=== PATIENT | female | born 2000 | race Caucasian/White ===

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

== ENCOUNTER 2022-11-17 03:50 | Emergency (ER) | payer MEDICAID, SELFPAY ==
[2022-11-17 04:04] VITALS: BP 124/62; PULSE 100; RESP 16; TEMP 36.7; O2SAT 99; BMI 17.9
[2022-11-17 04:20] LABS: IDNOW Serial# 08D9AD1C; Strep A Nucleic Acid Negative (Negative)
[2022-11-17] MEDS: Lidocaine HCl Viscous 2 % 15 ML SOLUTION MUCOUS MEM (04:31)
--- NOTE | 2022-11-17 04:36 | ED.GENADULT ---
HPI - General Adult General Chief complaint: General Medical Stated complaint: throat pain Time Seen by Provider: 11/17/22 04:08 History of Present Illness HPI narrative: PATIENT IS A 22-YEAR-OLD FEMALE PRESENTS TODAY WITH HAVING sore throat has been ongoing for 3 days. Worse with swallowing. Patient was seen at [facility] was started on clindamycin. Patient has an allergy to penicillin. Has a history of peritonsillar abscess in the past was drained in the past at [place] and also at [facility]. Patient complained the pain is getting worse she is unable to swallow well. Having extreme pain when she swallows. She is also approximately 8 weeks . Patient from home. No fever no chills. Related Data Previous Rx's Medication Instructions Recorded ibuprofen 400 mg tablet 400 mg PO Q6H PRN fever or pain 09/02/20 #20 tabs Allergies Allergy/AdvReac Type Severity Reaction Status Date / Time Penicillins [PCN] Allergy Unknown RASH Verified 09/02/20 13:05 Review of Systems Review of Systems: No chest pain or diaphoresis No abdominal pain No vaginal discharge No bleeding Yes all other systems are reviewed and are negative [facility] Past Medical History Attestation statement: The following information was validated with the patient. Medical History Asthma Social History Social History Advance Directives: No Advance Directives Information Provided: Yes Physical Exam ED Vital Signs: Vital Signs - 24 hr 11/17/22 04:04 11/17/22 06:15 Temperature 98.1 F 97.4 F Pulse Rate 100 67 Respiratory Rate 16 Blood Pressure 124/62 101/52 L Pulse Oximetry 99 100 Oxygen Delivery Method Room Air Room Air BMI result Body Mass Index 17.9 Appearance: Alert. Oriented X3. No acute distress. Eyes: Pupils equal, round and reactive to light. ENT: Right tonsils enlarged, touching the uvula. Floor of the mouth is soft. There is no dental issues. Neck: Normal inspection. Neck supple. No lymph nodes noted. No crepitus. Trachea is midline CVS: Normal heart rate and rhythm. Pulses normal. Normal S1 and S2 Respiratory: No respiratory distress. Breath sounds normal. No Wheezing. No rales Abdomen: Soft and nontender. No rigidity. No distention. good BS x4 Skin: Skin warm and dry. Normal skin color. Normal skin turgor. Extremities: No lower extremity edema. Neurovascular intact to all extremities. No Lacerations. No Rash Neuro: Oriented X 3. No motor deficit. No sensory deficit. Moving all extermities. No slurred speech Medications Administered Discontinued Medications Generic Name Dose Route Start Last Admin Trade Name Tjq PRN Reason Stop Dose Admin Dexamethasone Sodium Phosphate 10 mg 11/17/22 04:33 11/17/22 04:43 Dexamethasone Sod Phosphate 10 Mg/Ml Vial IVPUSH 11/17/22 04:34 10 mg ONCE ONE Administration Clindamycin Phosphate 600 mg in 50 mls @ 100 mls/hr 11/17/22 04:33 11/17/22 06:03 Cleocin IV 11/17/22 05:02 Infused ONCE ONE Infusion Lidocaine HCl 15 ml 11/17/22 04:25 11/17/22 04:31 Lidocaine Hcl Viscous 2 % 15 Ml Solution MUCOUS MEM 11/17/22 04:26 15 ml ONCE ONE Administration Medical Decision Making Medical Decision Making [facility] Narrative: Patient has a peritonsillar abscess on exam has a history of the same. Risk and benefit of a needle aspiration explained to patient. Viscous lidocaine used for anesthesia. With suction in place a 10 cc syringe with a 18 gauge needle was used. Over 4 cc of purulent material was drained. Patient was started on steroid. Started on IV clindamycin. Because patient is she did not receive any NSAIDs. Explained to patient the need to use Tylenol only for the pain. Patient denies any abdominal pain. Has an OBGYN appointment later today. She was monitored in the emergency department for the next hour. Symptomatic Sue feels much relieved. Tolerating p.o. tolerating food in the emergency department. She will be discharged home. Follow up with ENT on an outpatient basis. In stable condition. Differential Diagnosis Differential Diagnoses: The differential diagnosis associated with the presentation includes Strep pharyngitis, peritonsillar abscess Lab Data [facility] Lab Attestation statement: I reviewed the patient's lab results. 11/17/22 04:41 11/17/22 04:41 Labs: Lab Results 11/17/22 11/17/22 11/17/22 Range/Units 04:09 04:41 04:41 WBC 22.9 H (4.8-10.8) X10*3/uL RBC 4.20 (4.20-5.50) X10*6/uL Hgb 12.7 (12.0-16.0) g/dl Hct 36.7 L (37.0-47.0) % MCV 87.4 (80.0-98.0) fL MCH 30.2 (27.0-33.0) pg MCHC 34.6 (31.0-35.0) g/dl RDW 12.0 (11.0-16.0) % Plt Count 281 (160-400) X10*3/uL MPV 8.6 L (9.4-12.3) fL Immature Gran % (Auto) 0.4 (0.0-0.4) % Neut % (Auto) 81.1 H (45-73) % Lymph % (Auto) 8.6 L (20-40) % [place] % (Auto) 9.1 (2-11) % Eos % (Auto) 0.4 (0-4) % Baso % (Auto) 0.4 (0-2) % Lymph # (Auto) 2.0 (1.2-4.9) X10*3/uL [place] # (Auto) 2.1 H (0.1-1.2) X10*3/uL Eos # (Auto) 0.1 (0.0-0.4) X10*3/uL Baso # (Auto) 0.1 (0.0-0.2) X10*3/uL Abs Immat Gran (auto) 0.10 H (0.00-0.03) X10*3/uL Absolute Neuts (auto) 18.5 H (2.0-8.3) x10*3/uL Absolute Nucleated RBC 0.000 (0.0-0.012) X10*3/uL Nucleated RBC % (auto) 0.0 (0.0-0.2) /100WBC Smear Tech's Comments VERIFIED Sodium 137 (135-145) mmol/L Potassium 3.6 (3.3-5.1) mmol/L Chloride 105 (96-108) mmol/L Carbon Dioxide 23 (22-29) mmol/L Anion Gap 13 (12-20) BUN 5 L (9-16) mg/dL Creatinine 0.62 (0.5-1.4) mg/dL Estim Creat Clear Calc 129.5 Estimated GFR > 60 Random Glucose 90 (60-115) mg/dL Calcium 9.4 (8.4-10.2) mg/dL Beta HCG, Quant mIU/mL S. pyogenes GrpA EH Negative (Negative) 11/17/22 Range/Units 04:41 WBC (4.8-10.8) X10*3/uL RBC (4.20-5.50) X10*6/uL Hgb (12.0-16.0) g/dl Hct (37.0-47.0) % MCV (80.0-98.0) fL MCH (27.0-33.0) pg MCHC (31.0-35.0) g/dl RDW (11.0-16.0) % Plt Count (160-400) X10*3/uL MPV (9.4-12.3) fL Immature Gran % (Auto) (0.0-0.4) % Neut % (Auto) (45-73) % Lymph % (Auto) (20-40) % [place] % (Auto) (2-11) % Eos % (Auto) (0-4) % Baso % (Auto) (0-2) % Lymph # (Auto) (1.2-4.9) X10*3/uL [place] # (Auto) (0.1-1.2) X10*3/uL Eos # (Auto) (0.0-0.4) X10*3/uL Baso # (Auto) (0.0-0.2) X10*3/uL Abs Immat Gran (auto) (0.00-0.03) X10*3/uL Absolute Neuts (auto) (2.0-8.3) x10*3/uL Absolute Nucleated RBC (0.0-0.012) X10*3/uL Nucleated RBC % (auto) (0.0-0.2) /100WBC Smear Tech's Comments Sodium (135-145) mmol/L Potassium (3.3-5.1) mmol/L Chloride (96-108) mmol/L Carbon Dioxide (22-29) mmol/L Anion Gap (12-20) BUN (9-16) mg/dL Creatinine (0.5-1.4) mg/dL Estim Creat Clear Calc Estimated GFR Random Glucose (60-115) mg/dL Calcium (8.4-10.2) mg/dL Beta HCG, Quant 81856 mIU/mL S. pyogenes GrpA EH (Negative) Discharge Plan Discharge Clinical Impression: Abscess, peritonsillar Patient Disposition: Home, Self-Care Instructions: Peritonsillar Abscess (DC) Additional Instructions: Tylenol for pain. You may continue to take your clindamycin. Prescriptions: No Action ibuprofen 400 mg tablet 400 mg PO Q6H PRN (Reason: fever or pain) Qty: 20 0RF Referrals: Raymon Garcia [Physician] - 11/19/22
[2022-11-17] MEDS: dexAMETHasone sod phosphate 10 MG/ML VIAL IVPUSH (04:43)
[2022-11-17] MEDS: Clindamycin Phosphate/D5W 600 MG/50 ML PIGGYBACK 100 MG IV (04:44)
[2022-11-17 04:45] LABS: Basophils Absolute Auto 0.1 X10*3/uL (0.0-0.2); Basophils Percent Auto 0.4 % (0-2); Eosinophils Absolute Auto 0.1 X10*3/uL (0.0-0.4); Eosinophils Percent Auto 0.4 % (0-4); Hematocrit 36.7 % (37.0-47.0); Hemoglobin 12.7 g/dl (12.0-16.0); Imm Gran Pct Auto 0.4 % (0.0-0.4); Lymphocytes Percent Auto 8.6 % (20-40); Mean Corpuscular HGB Conc 34.6 g/dl (31.0-35.0); Mean Corpuscular Hemoglobin 30.2 pg (27.0-33.0); Mean Corpuscular Volume 87.4 fL (80.0-98.0); Mean Platelet Volume 8.6 fL (9.4-12.3); Monocytes Absolute Auto 2.1 X10*3/uL (0.1-1.2); Monocytes Percent Auto 9.1 % (2-11); Neutrophils Absolute Auto 18.5 x10*3/uL (2.0-8.3); Neutrophils Percent Auto 81.1 % (45-73); Platelet Count 281 X10*3/uL (160-400); SCAN SMEAR FLAG 1; White Blood Count 22.9 X10*3/uL (4.8-10.8)
[2022-11-17 04:46] LABS: MANUAL DIFF FLAG SCAN
--- NOTE | 2022-11-17 05:00 | PC.NURSE ---
late entry- this rn at bedside to assist with draining cyst. pt medicated according to hernando. pt portuguese speaking only
[2022-11-17 05:02] LABS: SLIDE REVIEW VERIFIED
[2022-11-17 05:08] LABS: Anion Gap 13 (12-20); Blood Urea Nitrogen 5 mg/dL (9-16); Calcium 9.4 mg/dL (8.4-10.2); Carbon Dioxide 23 mmol/L (22-29); Chloride 105 mmol/L (96-108); Creatinine Clr Calc Pharmacy 129.5; Estimated Glomerular Filt Rate > 60; Glucose Random 90 mg/dL (60-115); Potassium 3.6 mmol/L (3.3-5.1); Sodium 137 mmol/L (135-145)
[2022-11-17 06:15] VITALS: BP 101/52; PULSE 67; TEMP 36.3; O2SAT 100
[2022-11-17] MEDS: Acetaminophen 325 MG TABLET 650 MG PO (06:51)
--- NOTE | 2022-11-17 07:19 | PC.NURSE ---
iv removed at time of discharge. pt ambulatory. pt medicated according to aug. pt discharged to waiting room to find ride home. pt provided with discharge plan. pt verbalized understanding of discharge plan
== END 2022-11-17 07:21 | disposition home or self-care (01) ==
PROVIDERS: Emergency Provider Emergency Medicine Emergency Medical Services
DX: O26.891 Other specified pregnancy related conditions, first trimester (principal); J36 Peritonsillar abscess
CPT/HCPCS: 36415; 80048; 84702; 85025; 87070; 87077; 87185; 87205; 87651; 96365; 96375; 99284; J1100

== ENCOUNTER 2024-03-28 14:08 | Outpatient (REF) | payer MEDICAID, SELFPAY ==
[2024-03-29 04:27] LABS: HIV AB/AG Nonreactive (Nonreactive); HIV Num 1 0.05 S/CO (0.00-0.99); ~HepC Num1 0.09 S/CO (0.00-0.79); ~Hepatitis C Antibody Nonreactive (Nonreactive)
[2024-03-29 08:49] LABS: Bacterial Vaginosis PCR NEGATIVE (Negative); Candida Group PCR NOT DETECTED (Not Detect); Candida glab krusei PCR NOT DETECTED (Not Detect); Trichomonas vaginalis PCR NOT DETECTED (Not Detect)
[2024-03-29 09:11] LABS: CT PCR NOT DETECTED (Not Detect.); NG PCR NOT DETECTED (Not Detect.)
[2024-03-31 02:23] LABS: RPR Rapid Plasma Reagin NON-REACTIVE (NON-REACTIVE)
== END 2024-03-28 14:09 | disposition home or self-care (01) ==
LOC: HO.HHCL 14:08
PROVIDERS: Visit Provider General Practice
DX: Z12.4 Encounter for screening for malignant neoplasm of cervix (principal)
CPT/HCPCS: 0352U; 36415; 86592; 86803; 87389; 87491; 87591; 88175

== ENCOUNTER 2024-04-08 15:34 | Outpatient (REF) | payer MEDICAID, SELFPAY ==
[2024-04-08 16:36] LABS: MANUAL DIFF FLAG NO
[2024-04-08 16:50] LABS: Basophils Absolute Auto 0.1 X10*3/uL (0.0-0.2); Basophils Percent Auto 1.1 % (0-2); Eosinophils Absolute Auto 0.3 X10*3/uL (0.0-0.4); Eosinophils Percent Auto 2.5 % (0-4); Hematocrit 40.4 % (37.0-47.0); Hemoglobin 13.5 g/dl (12.0-16.0); Imm Gran Abs Auto 0.04 X10*3/uL (0.00-0.03); Imm Gran Pct Auto 0.4 % (0.0-0.4); Lymphocytes Absolute Auto 2.1 X10*3/uL (1.2-4.9); Lymphocytes Percent Auto 19.5 % (20-40); Mean Corpuscular HGB Conc 33.4 g/dl (31.0-35.0); Mean Corpuscular Hemoglobin 28.6 pg (27.0-33.0); Mean Corpuscular Volume 85.6 fL (80.0-98.0); Mean Platelet Volume 9.5 fL (9.4-12.3); Monocytes Absolute Auto 0.9 X10*3/uL (0.1-1.2); Monocytes Percent Auto 8.3 % (2-11); Neutrophils Absolute Auto 7.3 x10*3/uL (2.0-8.3); Neutrophils Percent Auto 68.2 % (45-73); Platelet Count 358 X10*3/uL (160-400); Red Blood Count 4.72 X10*6/uL (4.20-5.50); Red Cell Distribution Width 12.4 % (11.0-16.0); White Blood Count 10.7 X10*3/uL (4.8-10.8)
[2024-04-08 16:54] LABS: Estimated Average Glucose 97 mg/dL; Hemoglobin A1C 110.2415 umol/L; Total Hemoglobin (HGBA1C) 3552.5155 umol/L
[2024-04-09 15:48] LABS: Bacterial Vaginosis PCR NEGATIVE (Negative); Candida Group PCR NOT DETECTED (Not Detect); Candida glab krusei PCR NOT DETECTED (Not Detect); Trichomonas vaginalis PCR NOT DETECTED (Not Detect)
== END 2024-04-08 15:35 | disposition home or self-care (01) ==
LOC: HO.HHCL 15:34
PROVIDERS: Visit Provider General Practice
DX: R42 Dizziness and giddiness (principal); N89.8 Other specified noninflammatory disorders of vagina
CPT/HCPCS: 0352U; 36415; 83036; 85025

== ENCOUNTER 2025-01-04 10:54 | Outpatient (REF) | payer MEDICAID, SELFPAY ==
--- OUTSIDE RECORDS SUMMARY | 2025-01-04 11:58 | XMS_ITS | Encounter Summary ---
Author Organization [employer] Address [address] [facility] [address] [address] [place] [address] Care Team Providers Care Produce Associate Name Role Phone Ivania Lou MD Primary Care Provider Reason for Visit * Reason Onset Date Comments Results 09/01/2022 Encounter Details Date Type Department Care Team ([facility] st Contact Info) Description 09/01/2022 Telephone [facility] MEDICINE [address] [place], [place] [phone] Ivania Lou MD [address] [place], [place] [phone] Results Social History Tobacco Use Types Packs/Day Years Used Date Smoking Tobacco: Never Assessed Comments Unknown Sex and Gender Information Value Date Recorded Sex Assigned at Female 04/07/2022 10:32 AM EDT Legal Sex Female 10:32 AM EDT Gender Identity Female 04/07/2022 10:32 AM EDT Sexual Orientation Straight 04/07/2022 10 :32 AM EDT COVID-19 Exposure Response Date Recorded In the last 10 days, have yo u been in contact with someone who was confirmed or suspected to have Coronavirus/COVID-19? No / Unsure 08/29/2022 12:36 PM EDT documented as of this encounter Miscellaneous Notes * Telephone Encounter - Kristen Ordaz RN - 09/01/2022 2:46 PM EDT 2nd call placed to pt via [employer] #[id number]. Advised of message from Dr. Vasques re: vaginal swab results. Pt reports a strange vaginal odor, pain and burning sensation with urination. Denies vaginal discharge. Advised of recommendation for treatment with metronidazole. Pt reports that she is going to ED for evaluation of severe left lower abd pain. Reports pain kept her from sleeping last night. * Telephone Encounter - Toro Jeison - 09/01/2022 2:13 PM EDT Tc from pt requesting status on message below * Telephone Encounter - Karey Gooden - 09/01/2022 10:46 AM EDT Tc from pt requesting some results that were done not to long ago. Please contact pt at [phone] Swedish Speaker documented in this encounter Plan of Treatment Upcoming Encounters Date Type Department Care Team (Late st Contact Info) Description 01/25/2025 4:00 PM EDT Office Visit [address] [address] Ivania Lou MD [address] [place] [address] 03/22/2025 2:45 PM EDT Procedure Visit [address] [address] Lashell Oconnell CNM [address] [place] [address] documented as of this encounter Visit Diagnoses Not on filedocumented in this encounter Care Teams Produce Associate Relationship Specialty Start Date End Date Ivania Lou MD [address] [place] [address] PCP - General Family Medicine 01/14/21 documented as of this encounter
[2025-01-04 13:34] LABS: Hematocrit 41.2 % (37.0-47.0); Hemoglobin 13.4 g/dl (12.0-16.0); Mean Corpuscular HGB Conc 32.5 g/dl (31.0-35.0); Mean Corpuscular Hemoglobin 28.9 pg (27.0-33.0); Mean Corpuscular Volume 89.0 fL (80.0-98.0); NRBC Abs Auto 0.000 X10*3/uL (0.0-0.012); NRBC Pct Auto 0.0 /100WBC (0.0-0.2); Platelet Count 349 X10*3/uL (160-400); Red Blood Count 4.63 X10*6/uL (4.20-5.50); White Blood Count 16.6 X10*3/uL (4.8-10.8)
[2025-01-04 13:49] LABS: Hemoglobin A1C 112.4567 umol/L; Total Hemoglobin (HGBA1C) 3548.9780 umol/L
[2025-01-04 14:30] LABS: Ferritin 45 ng/mL (10-122); Free T4 (Free Thyroxine) 1.08 ng/dL (0.71-1.85)
[2025-01-04 14:39] LABS: Alanine Aminotransferase 18 U/L (0-31); Albumin Level 4.7 g/dL (3.5-5.0); Alkaline Phosphatase 82 U/L (39-117); Anion Gap 11 (12-20); Aspartate Amino Transferase 19 U/L (5-31); Blood Urea Nitrogen 12 mg/dL (9-16); Calcium 8.8 mg/dL (8.4-10.2); Carbon Dioxide 26 mmol/L (22-29); Chloride 106 mmol/L (96-108); Cholesterol 143 mg/dL (<200); Estimated Glomerular Filt Rate > 60; HDL Cholesterol 62 mg/dL (>40); Iron 54 mcg/dL (30-160); Percent Iron Saturation 19 % (15-50); Potassium 4.0 mmol/L (3.3-5.1); Sodium 139 mmol/L (135-145); Thyroid Stimulating Hormone 0.79 uIU/mL (0.32-4.0); Total Iron Binding Capacity 283 mcg/dL (228-428); Total Protein 7.2 g/dL (6.5-8.0); Triglycerides 32 mg/dL (<150); Unsaturated Iron Binding 229 ug/dL
[2025-01-04 14:46] LABS: Folate 9.1 ng/mL (> or = 4.0); Vitamin B12 545 pg/mL (200-900)
== END 2025-01-04 10:55 | disposition home or self-care (01) ==
LOC: HO.HHCL 10:54
PROVIDERS: General Practice; PCP Family Medicine; Visit Provider Family Medicine
DX: R42 Dizziness and giddiness (principal); D64.9 Anemia, unspecified; R51.9 Headache, unspecified
CPT/HCPCS: 36415; 80053; 80061; 82248; 82306; 82607; 82728; 82746; 83036; 83540; 84439; 84443; 85027

== ENCOUNTER 2025-02-07 11:01 | Outpatient (REF) | payer MEDICAID, SELFPAY ==
--- OUTSIDE RECORDS SUMMARY | 2025-02-07 12:37 | XMS_ITS | Encounter Summary ---
Author Organization [employer] Address [address] [place] [address] Care Team Providers Care Electrical Technician Name Role Phone Ivania Lou MD Primary Care Provider [phone] Reason for Visit * Reason Comments Med Refill Encounter Details Date Type Department Care Team ([facility] st Contact Info) Description 02/06/2025 Refill [facility] MEDICINE [address] [place], [place] [phone] Ivania Lou MD [address] [place], [place] [phone] Social History Tobacco Use Types Packs/Day Years Used Date Smoking Tobacco: Former Smokeless Tobacco: Never Alcohol Use Standard Drinks/Week Comments Never 0 (1 standard drink = 0.6 oz pur e alcohol) Depression Answer Date Recorded Patient Health Questionnaire-9 Score 0 2024 Patient Health Questionnaire-9 Score 0 2024 Last PHQ-9: Questionnaire Data Not on file 1 Housing Stability Answer Date Recorded What is your housing situation today? I have jenny cross 12/15/[address] you li ve. Do you have problems with any of the following? None of the above 12/15/2023 Food Insecurity Answer Date Recorded Within the past 12 months, y ou worried that your food would run out before you got money to buy more: Never True 2024 Within the past 12 months,th e food you bought just didn't last and you didn't have enough money to get more: Never True Transportation Answer Date Recorded In the past 12 months, has l ack of transportation kept you from medical appts, meetings, work or from getting things needed for daily living? No 2024 Utilities Answer Date Recorded In the past 12 months, has t he electric, gas, oil or water company threatened to shut off services in your home? No 12/15/2023 Depression Answer Date Recorded Patient Health Questionnaire-2 Score 0 2024 Internet Access Answer Date Recorded Internet Access Q1 Yes 02/08/2024 Internet Access Q2 Not on file 02/08/2024 Comments No Sex and Gender Information Value Date Recorded Sex Assigned at Female 04/07/2022 10:32 AM EDT Legal Sex Female 10:32 AM EDT Gender Identity Female 04/07/2022 10:32 AM EDT Sexual Orientation Straight 04/07/2022 10 :32 AM EDT documented as of this encounter Plan of Treatment Upcoming Encounters Date Type Department Care Team (Late st Contact Info) Description 03/22/2025 2:45 PM EDT Procedure Visit [facility] MEDICINE [address] [place] [address] Lashell Oconnell CNM [address] [place] [address] documented as of this encounter Visit Diagnoses Not on filedocumented in this encounter Additional Health Concerns Assessment Noted Time PHQ-9 Depression Total Score: 0 03/28/20 24 1:24 PM EDT documented as of this encounter Care Teams Electrical Technician Relationship Specialty Start Date End Date Ivania Lou MD [address] [place] [address] PCP - General Family Medicine 01/14/21 documented as of this encounter
--- OUTSIDE RECORDS SUMMARY | 2025-02-07 12:37 | XMS_ITS | Encounter Summary ---
Author Organization [employer] Address [address] [facility] [address] [place] [address] Care Team Providers Care Medical Transcription Editor Name Role Phone Ivania Lou MD Primary Care Provider [phone] Reason for Visit * Reason Onset Date Comments Nurse Triage 02/03/2025 Encounter Details Date Type Department Care Team (Late st Contact Info) Description 02/03/2025 Telephone [facility] MEDICINE [address] [place] [address] Ivania Lou MD [address] [place], [place] [phone] Nurse Triage Social History Tobacco Use Types Packs/Day Years [...] AM EDT documented as of this encounter Miscellaneous Notes * Telephone Encounter - Erinn SilvaHOMA lyle - 02/03/2025 2:37 PM EDT Triage call returned with BLS #[id number] [place]AP[place]. Patient reports that she needs medication for vaginal yeast infection. Notes reviewed and patient seen in [facility] ED on 01/23/25 and prescribed Cipro 500mg by mouth two times daily. Patient has 5 left and reports I'm not perfect and have forgotten to take some Patient advised to complete all ABT as ordered. Patient then references that she was seen at [facility] after ED visit and given a dose of Fluconazole that she has not yet taken. Patient reports that she has not taken it as hermale partner has similar issue with penis and has no health insurance and is unable to obtain treatment for his issue. Patient asking if her medication would address his issue as well. Patient advised to have partner seek evaluation at ED for his concern and that she should take tablet provided to her. Patient also told partner can meet with training and development specialist to apply for coverage if assistance is needed. Patient then reports she is unable to find tablet of Fluconazole given to her and may Iorder her another one. Disposition reviewed and patient in agreement with plan. Forwarded to PCP and team as FYI to follow up PRN Patient also provided [facility] Thursday hours for her concerns as needed tomorrow. Protocol Used: Vaginal Symptoms (Adult) Protocol-Based Disposition: See in Office or Video Visit within 3 Days Override (Final) Disposition: Discuss with PCP and Callback by Nurse Today Override Reason: Already seen and questions Positive Triage Question: * Patient wants to be seen * All higher-acuity triage questions were negative Care Advice Discussed: * Reasons To Call Back - You become worse * Telephone Encounter - Jose Varma - 02/03/2025 1:59 PM EDT Tc from pt reporting that she has gatito and a uti. Pt states that she went to another walk in clinic 3 days ago. Pt still has the symptoms and is looking for n antibiotic. Contact pt at [phone] documented in this encounter Plan of Treatment Upcoming Encounters Date Type Department Care Team (Late st Contact Info) Description 03/22/2025 2:45 PM EDT Procedure Visit [facility] MEDICINE [address] [place], [place] [phone] Lashell Oconnell CNM [address] [place] [address] documented as of this encounter Visit Diagnoses Not on filedocumented in this encounter Additional Health Concerns Assessment Noted Time PHQ-9 Depression Total Score: 0 03/28/20 24 1:24 PM EDT documented as of this encounter Care Teams Medical Transcription Editor Relationship Specialty Start Date End Date Ivania Lou MD [address] [place] [address] PCP - General Family Medicine 01/14/21 documented as of this encounter
--- OUTSIDE RECORDS SUMMARY | 2025-02-07 12:37 | XMS_ITS | Encounter Summary ---
Author Organization [employer] Address [address] [facility] [address] [place] [address] Care Team Providers Care Body Component Engineer Name Role Phone Ivania Lou MD Primary Care Provider [phone] Reason for Visit * Reason Onset Date Comments Results 09/01/2022 Encounter Details Date Type Department Care Team ([facility] st Contact Info) Description 09/01/2022 Telephone [facility] [address] [place], [place] [phone] Ivania Lou MD [address] [place], [place] [phone] Results Social History Tobacco Use Types Packs/Day [...] EDT 2nd call placed to pt via [employer] #[id number]. Advised of message from Dr. Vasques re: vaginal swab results. Pt reports a strange vaginal odor, pain and burning sensation with urination. Denies vaginal discharge. Advised of recommendation for treatment with metronidazole. Pt reports that she is going to ED for evaluation of severe left lower abd pain. Reports pain kept her from sleeping last night. * Telephone Encounter - Toro Mchugh - 09/01/2022 2:13 PM EDT Tc from pt requesting status on message below * Telephone Encounter - Karey Gooden - 09/01/2022 10:46 AM EDT Tc from pt requesting some results that were done not to long ago. Please contact pt at [phone] Setswana Speaker documented in this encounter Plan of Treatment Upcoming Encounters Date Type Department Care Team (Late st Contact Info) Description 03/22/2025 2:45 PM EDT Procedure Visit [facility] [address] [place] [address] Lashell Oconnell CNM [address] [place] [address] documented as of this encounter Visit Diagnoses Not on filedocumented in this encounter Care Teams Body Component Engineer Relationship Specialty Start Date End Date Ivania Lou MD [address] [place] [address] PCP - General Family Medicine 01/14/21 documented as of this encounter
--- OUTSIDE RECORDS SUMMARY | 2025-02-07 12:37 | XMS_ITS | Encounter Summary ---
Author Organization [employer] Address [address] [facility] [address] [place] [address] Care Team Providers Care Patient Placement Coordinator Name Role Phone Ivania Lou MD Primary Care Provider [phone] Reason for Visit * Reason Onset Date Comments Lab Orders 02/07/2025 Encounter Details Date Type Department Care Team (Late st Contact Info) Description 02/07/2025 Telephone [facility]INE [address] [place] [address] Ivania Lou MD [address] [place], [place] [phone] Lab Orders Social History Tobacco Use Types Packs/Day Years [...] encounter Miscellaneous Notes * Telephone Encounter - Vanessa Tran RN - 02/07/2025 10:44 AM EDT TC returned to pt. Pt. Confirms she was able to picker tender and take diflucan, and partner was able to secure treatment aswell. Pt. Reports + urine hcg at home on 02/04/25 with LMP 12/28-01/01. Negative preg test in hospital on 01/23/25. Pt. Reports she has not been using any form of contraception. Pt. Reports mild cramping, headaches, nausea, mood swings, increase in clear vaginal discharge. No vaginal bleeding or spotting. HCG ordered, pt. Will come to lab today. Requests referral to [facility] if +, this is where she delivered first child. Pt. Also request rx is + as well. Pt. Will access results via [email or web address]. * Telephone Encounter - Nagi Doan - 02/07/2025 8:35 AM EDT Tc from pt stating stating she has come out for home test and would like lab work to further verify. Please contact pt at [phone]. (Greek Speaker) documented in this encounter Plan of Treatment Upcoming Encounters Date Type Department Care Team (Late st Contact Info) Description 03/22/2025 2:45 PM EDT Procedure Visit [facility]INE [address] [place], [place] [phone] Lashell Oconnell CNM [address] [place], [place] [phone] Scheduled Orders Name Type Priority Associated Diagnoses Orde r Schedule hCG, Total, Quantitative Lab Routine test positive Expected: 02/07/2025 (Approximate), Expires: 02/07/2026 documented as of this encounter Visit Diagnoses Diagnosis test positive examination or test, positive result documented in this encounter Additional Health Concerns Assessment Noted Time PHQ-9 Depression Total Score: 0 03/28/20 24 1:24 PM EDT documented as of this encounter Care Teams Patient Placement Coordinator Relationship Specialty Start Date End Date Ivania Lou MD [address] [place] [address] PCP - General Family Medicine 01/14/21 documented as of this encounter
--- OUTSIDE RECORDS SUMMARY | 2025-02-07 12:37 | XMS_ITS | Encounter Summary ---
Author Organization [employer] Address [address] [facility] [address] [place] [address] Care Team Providers Care Touch Up Painter Name Role Phone Ivania Lou MD Primary Care Provider [phone] Reason for Visit * Reason Onset Date Comments Error (VOID this visit) 02/07/2025 Encounter Details Date Type Department Care Team ([facility] st Contact Info) Description 02/07/2025 Telephone [facility] MED[facility]INE [address] [place], [place] [phone] Ivania Lou MD [address] [place], [place] [phone] Error (VOID this visit) Social History Tobacco Use Types Packs/Day Years [...] Description 03/22/2025 2:45 PM EDT Procedure Visit [facility] [address] [place] [address] Lashell Oconnell CNM [address] [place] [address] documented as of this encounter Visit Diagnoses Not on filedocumented in this encounter Additional Health Concerns Assessment Noted Time PHQ-9 Depression Total Score: 0 03/28/20 24 1:24 PM EDT documented as of this encounter Care Teams Touch Up Painter Relationship Specialty Start Date End Date Ivania Lou MD [address] [place] [address] PCP - General Family Medicine 01/14/21 documented as of this encounter
--- OUTSIDE RECORDS SUMMARY | 2025-02-07 12:37 | XMS_ITS | Clinical Summary ---
Author Organization [employer] Address [address] [facility] [address] [place] [address] Care Team Providers Care Locate Technician Name Role Phone Ivania Lou MD Primary Care Provider [phone] Allergies Active Allergy Reactions Criticality Noted Date Comments Penicillin G 03/06/2017 Other reaction(s): Angioedema, hives Shrimp (Diagnostic) 12/21/2023 Medications acetaminophen (Tylenol) 500 MG tablet 2 tablet by oral route every 6 hours prn pain 09/12/19 20 Active acetaminophen (Tylenol) 325 MG tablet Take 650 mg by mouth. 09/18/19 20 Active 27-1 MG tablet TAKE 1 TABLET BY MOUTH EVERY DAY 90 tablet 3 04/02/20 23 Active albuterol 108 (90 Base) MCG/ACT inhalerIndica tions:COVID-1 9 Inhale 2 puffs every 6 (six) hours if needed for wheezing. 18 g 11 06/05/20 23 Active albuterol (2.5 MG/3ML) 0.083% nebulizer solutionIndic ations:COVID- 19 Take 3 mL (2.5 mg) by nebulization every 4 (four) hours if needed for wheezing. 75 mL 3 06/05/20 23 Active Spacer/Aero-H olding Chambers (AeroChamber MV) inhalerIndica tions:COVID-1 9 Use as instructed 1 each 2 06/05/20 23 Active polyethylene glycol, PEG, 3350 (MiraLax) 17 GM/SCOOP powder Take 17 g by mouth. 07/18/19 24 Active Ferrous Fumarate 325 (106 Fe) MG tablet Take 325 mg by mouth. 04/20/20 23 Active simethicone (Mylicon) 80 MG chewable tablet Chew 80 mg. 07/18/19 24 Active MV-Min-Fe Fum-FA-DHA ( 1 PO) Take 3 capsules by mouth. 12/27/19 23 Active ketoconazole (NIZOral) 2 % shampoo Apply topically 2 (two) times a week. 120 mL 3 11/18/19 25 Active SUMAtriptan (Imitrex) 25 MG tablet TAKE 1 TABLET BY MOUTH AT ONSET OF MIGRAINE. MAY REPEAT ONCE AFTER 2 HOURS IF NEEDED DO NOT EXCEED 2 DOSES IN 24 HOURS 9 tablet 1 01/05/20 25 Active norelgestromi n-ethinyl estradiol (Xulane) 150-35 MCG/24HR Apply 1 patch each week for 3 weeks, then have no patch for 1 week. Repeat 3 patch 12 01/10/20 25 Active cholecalcifer ol (Vitamin D-3) 50 MCG (1999 UT) capsule Take 1 capsule (50 mcg) by mouth Once per day. 90 capsule 3 01/14/20 25 Active etonogestrel- ethinyl estradiol (Nuvaring) 0.12-0.015 MG/24HR vaginal ring Insert 1 Ring. into the vagina See administration instructions. 1 every 3 weeks as directed then remove for 1 week. Repeat with new ring every month 1 Ring. 3 01/05/20 25 2024 Discontinued fluconazole (Diflucan) 150 MG tablet Take 1 tablet (150 mg) by mouth 1 (one) time for 1 dose. 1 tablet 02/04/20 25 2024 Active Problems Problem Noted Date Diagnosed Date LGSIL on Pap smear of cervix 04/07/2024 Anxiety 12/21/2023 History of depression 12/21/2023 Social problem 12/21/2023 Non-Sinhala speaking patient 12/21/2023 Maternal varicella, non-immune 12/21/2023 Mixed anxiety and depressive disorder 05/13/2022 Assessment & Plan (12/15/2022 9:20 AM EDT): History of anxiety and depression, passive SI Often related to SES circumstances Encouraged using marriage and family social worker at [facility] to explore housing options She is aware of half-way option Sees therapist weekly Declines medication interventions She can followup with me prn regarding that Encouraged building support system now Streptococcal sore throat 05/13/2022 Asthma 03/06/2017 Seasonal allergic rhinitis 03/06/2017 Resolved Problems Problem Noted Date Diagnosed Date Resolved Date 12/21/2023 01/04/2025 10 weeks gestation of 12/15/2022 01/04/2025 Assessment & Plan (12/15/2022 9:21 AM EDT): Instructed her to call [facility] to come to triage for eval of vaginal spotting at 10 weeks Encounters Date Type Department Care Team Description 02/07/2025 Telephone [facility] [address] [place] [address] Ivania Lou MD Error (VOID this visit) 02/07/2025 Telephone [facility] [address] [place] [phone] Ivania Lou MD Lab Orders 02/06/2025 Refill [facility] [address] [place] [address] [phone] Ivania Lou MD 02/03/2025 Orders Only [facility] [address] [place] [phone] Ivania Lou MD 02/03/2025 Telephone [facility] [address] [place] [address] [phone] Ivania Lou MD Nurse Triage 01/24/2025 Telephone [facility] PEDS [address] [place] [address] Ivania Lou MD Chart Prep 01/13/2025 Refill [facility] [address] [place] [address] Ivania Lou MD 01/09/2025 Orders Only [facility] [address] [place] [address] Lashell Oconnell CNM 01/06/2025 Telephone [facility] [address] [place] [address] [phone] Ivania Lou MD Medication Question 01/04/2025 11:30 AM EDT Office Visit [facility] [address] [place] [phone] Lashell Oconnell CNM Family planning counseling (Primary Dx) 01/04/2025 Travel 01/03/2025 Telephone [facility] [address] [place] [phone] Lashell Oconnell CNM chart prep 01/03/2025 Refill [facility] [address] [place] [phone] Lili Vela DO 01/02/2025 Telephone [facility] [address] [place] [address] [phone] Ivania Lou MD Medication Question 12/15/2024 10:00 AM EDT Office Visit [facility] [address] [place] [address] [phone] Lili Vela DO Acute intractable headache, unspecified headache type (Primary Dx); Anemia, unspecified type 12/15/2024 Travel 11/15/2024 Refill [facility] [address] [place] [address] [phone] Ivania Lou MD from Last 3 Months Immunizations Immunization Administration Dates Next Due DTaP 03/27/2008, 6,01/01/2004,07/03,2002,2002 HPV 9-Valent 05/25/2018,06/02/2017,04/01/2017 Hep A, ped/adol, 2 dose 04/01/2017,01/09/2006 Hep B, Adolescent or Pediatric 2002,2002,2002 HiB, unspecified 01/09/2006,2002, 3 Hib (PRP-T) 2002 IPV 04/13/2006, 3,2002,07/01 Influenza injectable quadriv alent preservative free 05/26/2019,05/25/2018,04/01/2017 Influenza, IIV3, injectable 03/17/2023 MMR 05/15/2006, 6,05/18/2003,04/20 Meningococcal MCV4P ACYW-135 05/26/2019,04/01/20 17 Tdap 05/04/2023,04/01/2017 Varicella 2006,07/21/2003,04/20/2003 Social History Tobacco Use Types Packs/Day Years Used Date Smoking Tobacco: Former Smokeless Tobacco: Never Tobacco Cessation:Counseling Given: Not Answered Alcohol Use Standard Drinks/Week Comments Never 0 [...] Q2 Not on file 02/08/2024 Comments No Intention Date Recorded Ambivalent about becoming (find ing) 01/04/2025 Sex and Gender Information Value Date Recorded Sex Assigned at Female 04/07/2022 10:32 AM EDT Legal Sex Female 10:32 AM EDT Gender Identity Female 04/07/2022 10:32 AM EDT Sexual Orientation Straight 04/07/2022 10 :32 AM EDT Last Filed Vital Signs Vital Sign Reading Time Taken Comments Blood Pressure 120/78 01/04/2025 11:29 AM EDT Pulse 104 01/04/2025 11:29 AM EDT Temperature 36.1 C (97 F) 01/04/2025 11:29 AM EDT Respiratory Rate 12 01/04/2025 11:29 AM EDT Oxygen Saturation 99% 01/04/2025 11:29 AM EDT Inhaled Oxygen Concentration - - Weight 66.4 kg (146 lb 6.4 oz) 01/04/2025 11:29 AM EDT Height 147.3 cm (4' 10 ) 2024 1:22 PM EDT Body Mass Index 30.6 2024 1:22 PM EDT Plan of Treatment Upcoming Encounters Date Type Department Care Team (Late st Contact Info) Description 03/22/2025 2:45 PM EDT Procedure Visit [facility] [address], [place] [phone] Lashell Oconnell, CNM [address], [place] [phone] Health Maintenance Due Date Last Done Comments Meningococcal B Vaccine (1 of 2 - Standard) 2018 Pneumococcal Vaccine: Pediatrics (0 to 5 Years) and At-Risk Patients (6 to 49) Years (1 of 2 - PCV) 2021 COVID-19 Vaccine ( - season) 2025 Influenza Vaccine (#1) 2025 , 05/26/2019, 05/25/2018, Additional history exists Alcohol/Substance Use Screening 2025 2024 Chlamydia and Gonorrhea Screening 2025 2024, 11/06/2022, 08/29/2022, Additional history exists Depression Screening 2025 2024, 03/28/20 Pap Smear 2025 2024 SDOH Screening 2025 2024 Disability Screening 01/04/2026 01/04/2025 Family Planning (PISQ) 01/04/2026 01/04/2025 Tobacco Screening 01/04/2026 01/04/2025 DTaP/Tdap/Td Vaccines (8 - Td or Tdap) 05/04/2033 05/04/2023, 04/01/2017, 03/27/2008, Additional history exists Zoster Vaccines (1 of 2) 2052 RSV Patients and Patients Aged 60 years or older (1 - 1-dose 75+ series) 2077 Hepatitis B Vaccines Completed 2002, 2002, 2002 HIB Vaccines Completed 01/09/2006, 11/2002, 2002, Additional history exists IPV Vaccines Completed 04/13/2006, 11/2002, 2002, Additional history exists Hepatitis A Vaccines Completed 04/01/2017, 01/10/20 06 HPV Vaccines Completed 05/25/2018, 05/09, 04/01/2017 Meningococcal Vaccine Completed 05/26/2019, 017 HIV Screening Completed 2024, 01/11/2021 Hepatitis C Screening Completed 2024, 021 RSV under 20 months Aged Out No longe r eligible based on patient's age to complete this topic Rotavirus Vaccines Aged Out No longer eligible based on patient's age to complete this topic Procedures Procedure Name Priority Date/Time Associated Diagnosis Comments TSH W/REFLEX TO FT4 Routine 01/04/2025 1 1:15 AM EDT COMPREHENSIVE METABOLIC PANEL Routine 01/04/2025 11:15 AM EDT IRON AND TOTAL IRON BINDING CAPACITY Routine 01/04/2025 11:15 AM EDT Acute intractable headache, unspecified headache type Anemia, unspecified type FERRITIN Routine 01/04/2025 11:15 AM EDT Acute intractable headache, unspecified headache type Anemia, unspecified type VITAMIN B12/FOLATE, SERUM PANEL Routine 01/04/2025 11:15 AM EDT Acute intractable headache, unspecified headache type Anemia, unspecified type CBC Routine 01/04/2025 11:15 AM EDT Acute intractable headache, unspecified headache type Anemia, unspecified type HEMOGLOBIN A1C Routine 01/04/2025 11:15 AM EDT Acute intractable headache, unspecified headache type Anemia, unspecified type HEPATIC FUNCTION PANEL Routine 11:15 AM EDT Acute intractable headache, unspecified headache type Anemia, unspecified type VITAMIN D,25-OH,TOTAL,IA Routine 01/04/2025 11:15 AM EDT Acute intractable headache, unspecified headache type Anemia, unspecified type TSH Routine 01/04/2025 11:15 AM EDT Acute intractable headache, unspecified headache type Anemia, unspecified type LIPID PANEL, STANDARD Routine 01/04/2025 11:15 AM EDT Acute intractable headache, unspecified headache type Anemia, unspecified type T4, FREE Routine 01/04/2025 11:15 AM EDT Acute intractable headache, unspecified headache type Anemia, unspecified type POCT INFLUENZA B (ID NOW RAPID MOLECULAR) Routine 12/15/2024 10:15 AM EDT Acute intractable headache, unspecified headache type POCT INFLUENZA A (ID NOW RAPID MOLECULAR) Routine 12/15/2024 10:15 AM EDT Acute intractable headache, unspecified headache type POCT RAPID COVID ANTIGEN Routine 12/15/2024 10:15 AM EDT Acute intractable headache, unspecified headache type HEPATITIS C AB W/REFL TO HCV RNA, QN, PCR Routine 2024 2:10 PM EDT Screening examination for sexually transmitted disease HIV 1/2 ANTIGEN/ANTIBODY, FOURTH GENERATION W/RFL Routine 2024 2:10 PM EDT Screening examination for sexually transmitted disease THINPREP IMAGING SYSTEM PAP Routine 2024 12:00 AM EDT Screening for cervical cancer CHLAMYDIA/N. GONORRHOEAE RNA, TMA, UROGENITAL Routine 2024 12:00 AM EDT Screening for cervical cancer from Last 3 Months or Most Recently Relevant to Health Maintenance Results * (ABNORMAL) Vitamin D, 25-Hydroxy, Total, Immunoassay (01/04/2025 11:15 AM EDT) Vitamin D 25-OH Total 26.2(L) >30 ng/mL [facility] Comment: Health Based Reference Values*< 20 ng/mL Yldiuyvco01-51 ng/mL Insufficient> 30 ng/mL Sufficient*Meagan GALVAN. N Engl J Med. 2007;357:266-280There is no well-established upper level of normal vitamin Dlevels. Some laboratories use 50 ng/mL as an upper limit ofnormal. However, toxicity is patient-dependent and may occurat any level. Careful correlation with the patient'spresentation is necessary and, if there is concern forvitamin D toxicity, treatment should be consideredirrespective of the serum level.Care must be taken in interpreting Vitamin D results fromdifferent laboratories and methodologies. Published datademonstrated that results from patients undergoinghemodialysis may show a negative bias when tested withvarious automated 25-OH vitamin D assays when compared toLC-MS/MS.When testing samples from patients whose predominant form ofVitamin D is Vitamin D2, such as patients receiving VitaminD2 supplementation, results that are subtherapeutic shouldbe confirmed with another method such as LC-MS/MS. Blood Venous blood specimen / Unknown 01/04/2025 11:15 AM EDT 01/04/2025 1:19 PM EDT us Lili Vela DO LAB BLOOD ORDERABLES Final R esult [facility] [address], [place] [phone] * Vitamin B12 (Cobalamin) and Folate Panel, Serum (01/04/2025 11:15 AM EDT) Vitamin B12 545 200 - 900 pg/mL [facility] Comment:NORMAL 200-900 PG/M L INDETERMINATE 160-199 PG/ML DEFICIENT < 160 PG/ML Folate 9.1 > or = 4.0 ng/mL [facility] Comment:Reference Values:> o r = 4.0 ng/mL< 4.0 ng/mL suggests folate deficiency Methotrexate, aminopterin and folinic acid(leucovorin) are chemotherapeutic agents whose molecularstructures are similar to folate; therefore, the Architectfolate assay cannot be used for patients using these drugs. Blood 01/04/2025 11:1 5 AM EDT 01/04/2025 1:19 PM EDT Lili Vela DO LAB BLOOD ORDERABLES Final R esult Performing Organization Address [facility] Co de Phone Number [facility] [address] [place] [phone] * TSH with Reflex to Free T4 (01/04/2025 11:15 AM EDT) TSH reflex Free T4 0.79 0.32 - 4.0 uIU/mL [facility] 01/04/2025 11:1 5 AM EDT 01/04/2025 1:19 PM EDT Ivania Lou MD LAB BLOOD ORDERABLES Final Res ult Performing Organization Address [facility] de Phone Number [facility] [address] [place] [address] [phone] * Iron And Total Iron Binding Capacity (01/04/2025 11:15 AM EDT) Iron 54 30 - 160 mcg/dL [facility] Total Iron Binding Capacity 283 228 - 428 mcg/dL [facility] Percent Iron Saturation 19 15 - 50 % [facility] Unsaturated Iron Binding 229 ug/dL [facility] Blood Venous blood specimen / Unknown 01/04/2025 11:15 AM EDT 01/04/2025 1:19 PM EDT Lili Ruizak DO LAB BLOOD ORDERABLES Final R esult [facility] [address] [place] [phone] * (ABNORMAL) CBC (01/04/2025 11:15 AM EDT) White Blood Count 16.6(H) 4.8 - 10.8 X10*3/uL [facility] Red Blood Count 4.63 4.20 - 5.50 X10*6/uL [facility] Hemoglobin 13.4 12.0 - 16.0 g/dl [facility] Hematocrit 41.2 37.0 - 47.0 % [facility] Mean Corpuscular Volume 89.0 80.0 - 98.0 fL [facility] Mean Corpuscular Hemoglobin 28.9 27.0 - 33.0 pg [facility] Mean Corpuscular HGB Conc 32.5 31.0 - 35.0 g/dl [facility] Red Cell Distribution Width 12.8 11.0 - 16.0 % [facility] Platelet Count 349 160 - 400 X10*3/uL [facility] Mean Platelet Volume 9.8 9.4 - 12.3 fL [facility] NRBC Pct Auto 0.0 0.0 - 0.2 /100WBC [facility] NRBC Abs Auto 0.000 0.0 - 0.012 X10*3/uL [facility] Blood Venous blood specimen / Unknown 01/04/2025 11:15 AM EDT 01/04/2025 1:18 PM EDT Lili Mirian DO LAB BLOOD ORDERABLES Final R esult [facility] [address] [place] [phone] * TSH (01/04/2025 11:15 AM EDT) Thyroid Stimulating Hormone 0.79 0.32 - 4.0 uIU/mL [facility] Comment:TSH 3rd Generation ( [facility] [employer]) Blood Venous blood specimen / Unknown 01/04/2025 11:15 AM EDT 01/04/2025 1:19 PM EDT Lili Salomonjuancaroline DO LAB BLOOD ORDERABLES Final R esult Performing Organization Address City/[facility]/ZIP Co de Phone Number [facility] [address] [place] [phone] * T4, Free (01/04/2025 11:15 AM EDT) Free T4 (Free Thyroxine) 1.08 0.71 - 1.85 ng/dL [facility] Blood Venous blood specimen / Unknown 01/04/2025 11:15 AM EDT 01/04/2025 1:19 PM EDT Lili Mirian DO LAB BLOOD ORDERABLES Final R esult Performing Organization Address [facility] Co de Phone Number [facility] [address] [place] [phone] * Hemoglobin A1c (01/04/2025 11:15 AM EDT) Hemoglobin A1c 5.1 <6.0 % [facility] Comment:Hemoglobin A1C Refer ence Range Adults: 4.8 - 6.0 % Non diabetic: < 6.0 % Goal: < 7.0 %Additional Action Suggested: > 8.0 %Note: Hemoglobin A1c results are invalid for patients with abnormal amounts of HbF. Blood transfusions may impact the HbA1c concentration in the patient sample. Estimated Average Glucose 100 mg/dL [facility] Comment:eAG = Estimated ave rage glucose which is %A1C expressed asaverage glucose, using the formula of the D6W-CmkuqlbJqescly Glucose study (ADAG), Diabetes Care, Vol.31,#8,2007 Blood Venous blood specimen / Unknown 01/04/2025 11:15 AM EDT 01/04/2025 1:19 PM EDT Lili Mirian DO LAB BLOOD ORDERABLES Final R esult Performing Organization Address City/[facility]/ZIP Co de Phone Number [facility] [address] [place] [address] [phone] * Ferritin (01/04/2025 11:15 AM EDT) Ferritin 45 10 - 122 ng/mL [facility] Blood Venous blood specimen / Unknown 01/04/2025 11:15 AM EDT 01/04/2025 1:19 PM EDT Lili Mirian LAB BLOOD ORDERABLES Final R esult Performing Organization Address [facility] Co de Phone Number [facility] [address] [place] [address] [phone] * Hepatic Function Panel (01/04/2025 11:15 AM EDT) Pathologist [facility] Bilirubin, Direct 0.3 0.0 - 0.5 mg/dL [facility] Blood Venous blood specimen / Unknown 01/04/2025 11:15 AM EDT 01/04/2025 1:19 PM EDT Lili Mirian LAB BLOOD ORDERABLES Final R esult Performing Organization Address City/[facility] Co de Phone Number [facility] [address] [place] [phone] * Lipid Panel, Standard (01/04/2025 11:15 AM EDT) Triglycerides 32 <150 mg/dL [facility] Comment:Desirable Triglyceri de: less than 150 mg/dLBorderline High Triglyceride 150-199 mg/dLHigh Triglyceride: 200-499 mg/dLVery High Triglyceride: greater than or equal to 5OO mg/dL Cholesterol 143 <200 mg/dL [facility] Comment:Desirable Cholestero l: less than 200 mg/dLBorderline High Cholesterol: 200-239 mg/dLHigh Cholesterol: greater than 239 mg/dL LDL Cholesterol Calculated 75 <100 mg/dL [facility] Comment:Desirable LDL: less than 100 mg/dLNear Optimal/Above Optimal LDL: 110- 129 mg/dLBorderline High LDL: 130-159 mg/dLHigh LDL: 160-189 mg/dLVery High LDL: greater than or equal to 190 mg/dL HDL Cholesterol 62 >40 mg/dL [facility] Comment:Desirable HDL: great er than 40 mg/dL Note: This HDL assay may give artificially low results in patients with liver disease. Blood Venous blood specimen / Unknown 01/04/2025 11:15 AM EDT 01/04/2025 1:19 PM EDT us Lili Vela DO LAB BLOOD ORDERABLES Final R esult [facility] [address] [place] [phone] * (ABNORMAL) Comprehensive Metabolic Panel (01/04/2025 11:15 AM EDT) Sodium 139 135 - 145 mmol/L [facility] Potassium 4.0 3.3 - 5.1 mmol/L [facility] Chloride 106 96 - 108 mmol/L [facility] Carbon Dioxide 26 22 - 29 mmol/L [facility] Anion Gap 11(L) 12 - 20 [facility] Urea Nitrogen (BUN) 12 9 - 16 mg/dL [facility] Creatinine, Serum 0.57 0.5 - 1.4 mg/dL [facility] Estimated Glomerular Filt Rate >60 [facility] Comment:Chronic Kidney Disea se: Estimated GFR < 60 mL/min/1.55w9Hkrteg Kidney Disease: Estimated GFR < 15 mL/min/1.73m2 Glucose 85 60 - 115 mg/dL [facility] Calcium 8.8 8.4 - 10.2 mg/dL [facility] Bilirubin, Total 0.8 0.0 - 1.0 mg/dL [facility] Aspartate Amino Transferase 19 5 - 31 U/L [facility] Alanine Aminotransferase 18 0 - 31 U/L [facility] Total Protein 7.2 6.5 - 8.0 g/dL [facility] Albumin Level 4.7 3.5 - 5.0 g/dL [facility] Alkaline Phosphatase 82 39 - 117 U/L [facility] 01/04/2025 11:1 5 AM EDT 01/04/2025 1:19 PM EDT us Ivania Lou MD LAB BLOOD ORDERABLES Final Res ult Performing Organization Address [facility]/ZIP Co de Phone Number [facility] [address] [place] [address] [phone] * Influenza B (ID NOW Rapid Molecular) (12/15/2024 10:15 AM EDT) Influenza B Negative Negative, Indeterminate [facility] Swab 12/15/2024 10:1 5 AM EDT us Lili Vela DO POINT OF CARE TEST ENTER/SRAVAN T ORDERABLES Final Result Performing Organization Address [facility] Co de Phone Number [facility] [address] [place] [address] [phone] * Influenza A (ID NOW Rapid Molecular) (12/15/2024 10:15 AM EDT) Influenza A Negative Negative, Indeterminate [facility] Swab 12/15/2024 10:1 5 AM EDT us Lili Vela DO POINT OF CARE TEST ENTER/SRAVAN T ORDERABLES Final Result Performing Organization Address [facility] Co de Phone Number [facility] [address] [place] [phone] * POCT Rapid COVID Ag (12/15/2024 10:15 AM EDT) Pathologist [facility] Rapid COVID Ag Negative [facility] Swab 12/15/2024 10:1 5 AM EDT Lili Vela DO POINT OF CARE TEST ENTER/SRAVAN T ORDERABLES Final Result Performing Organization Address [facility]/ZIP Co de Phone Number [facility] [address] [place] [address] [phone] * Hepatitis C Antibody with Reflex to HCV, RNA, Quantitative, Real-Time PCR (2024 2:10 PM EDT) [facility] Hepatitis C Antibody Nonreactive Nonreactive [facility] Comment:Antibodies to HCV no t detected; does not exclude early acuteHCV infection. Blood Venous blood specimen / Unknown 2024 2:10 PM EDT 2024 4:36 PM EDT Ivania Lou MD LAB BLOOD ORDERABLES Final Res ult Performing Organization Address [facility] Co de Phone Number [facility] [address] [place] [address] [phone] * HIV-1/2 Antigen and Antibodies, Fourth Generation, with Reflexes (2024 2:10 PM EDT) [facility] HIV AB/AG Nonreactive Nonreactive [facility] Comment:HIV-1 p24 Ag and/or HIV-1/HIV-2 Ab not detected.A test result that is nonreactive does not exclude thepossibility of exposure to or infection with HIV-1 and/orHIV-2. Nonreactive results in this assay for individualswith prior exposure to HIV-1 and/or HIV-2 may be due toantigen and antibody levels that are below the limit ofdetection of this assay.The [employer] HIV Ag/Ab Combo assay result andsupplemental assay results should be interpreted inconjunction with the patient's clinical presentation,history and other laboratory results. If the results areinconsistent with clinical evidence, additional testing issuggested to confirm the result. Blood Venous blood specimen / Unknown 2024 2:10 PM EDT 2024 4:36 PM EDT us Ivania Lou MD LAB BLOOD ORDERABLES Final Res ult [facility] [place] [facility] [address] [place] [address] [phone] * (ABNORMAL) Pap Smear (2024 12:00 AM EDT) SOURCE: SEE NOTE [facility] [facility] Comment:None given Report Status: [facility] Clinical Information: SEE NOTE [facility] [facility] Comment:None given LMP: SEE NOTE [facility] [place] [facility] Comment:NONE GIVEN Prev. PAP: SEE NOTE [facility] [facility] Comment:NONE GIVEN Prev. BX: SEE NOTE [facility] [place] [facility] Comment:NONE GIVEN Statement Of Adequacy: SEE NOTE [facility] [place] [facility] Comment:Satisfactory for joss luation.Endocervical/transformation zone componentpresent. General Categorization: SEE NOTE(A) [facility] [place] [facility] Comment:Cytology Results: Ep ithelial Cell Abnormality Interpretation/Resul t: SEE NOTE(A) [facility] [facility] Comment:Low Grade Squamous I ntraepithelial Lesion (LSIL) Cytology Comment SEE NOTE [facility] Comment:This Pap test has be en evaluated with computerassisted technology. Tree Marker: SEE NOTE [facility] Comment:TOMMY FUNES(ASCP)CT scr eening location: [facility] [address]Xtonx preparation performed at: [facility] [address] CLIA No. [id number] Review Tree Marker: [facility] Pathologist SEE NOTE [facility] [place] [facility] Comment:Katlyn Krause M.D.,Sahil castillo Certified in Anatomic and Clinical Pathology(electronic signature)Consulting [facility] [place], [place] [phone] PAP Infection TNP [facility] See Note SEE NOTE [facility] [facility] Comment:EXPLANATORY NOTE:The Pap is a screening test for cervical cancer. It isnot a diagnostic test and is subject to false negativeand false positive results. It is most reliable when asatisfactory sample, regularly obtained, is submittedwith relevant clinical findings and history, and whenthe Pap result is evaluated along with historic andcurrent clinical information.THIS TEST WAS PERFORMED AT:[facility] ANATOMIC PATHOLOGY[address] [place] [address]MSJPSDELMA YBARRA MD Pap Vial Vaginal structure / Unknown 2024 2024 Narrative [facility] - 04/05/2024 10:43 AM EDT SEE SCANNED RESULTS IN EMR Ivania Lou MD LAB PATHOLOGY ORDERABLES Final Result [facility] [address] [place] [address] [phone] * Chlamydia/N. Gonorrhoeae RNA, TMA, Urogenitial (2024 12:00 AM EDT) CT PCR NOT DETECTED Not Detect. [facility] Comment:A not detected test result does not exclude the possibilityof infection because test results can be affected byimproper specimen collection, concurrent antibiotic therapy,or the number of organisms in the specimen which may bebelow the sensitivity of the test. As with many diagnostictests, results from the Xpert CT/NG assay should beinterpreted in conjunction with other laboratory andclinical data available to the clinician.Xpert CT/NG performance has not been evaluated in patientsless than 14 years of age. The assay should not be used forthe evaluationof suspected sexual abuse or for other medico-legalindications. Additional testing is recommended in anycircumstance when false positive or false negative resultscould lead to adverse medical, social or psychologicalconsequences. NG PCR NOT DETECTED Not Detect. [facility] Comment:A not detected test result does not exclude the possibilityof infection because test results can be affected byimproper specimen collection, concurrent antibiotic therapy,or the number of organisms in the specimen which may bebelow the sensitivity of the test. As with many diagnostictests, results from the Xpert CT/NG assay should beinterpreted in conjunction with other laboratory andclinical data available to the clinician.Xpert CT/NG performance has not been evaluated in patientsless than 14 years of age. The assay should not be used forthe evaluationof suspected sexual abuse or for other medico-legalindications. Additional testing is recommended in anycircumstance when false positive or false negative resultscould lead to adverse medical, social or psychologicalconsequences. Vaginal Swab 2024 2024 Narrative [facility] - 03/29/2024 9:11 AM EDT Vaginal Ivania Lou MD LAB MICROBIOLOGY - GENERAL ORD ERABLES Final Result [facility] [address] [place] [address] [phone] from Last 3 Months or Most Recently Relevant to Health Maintenance Insurance C3 Care Teams Locate Technician Relationship Specialty Start Date End Date Ivania Lou MD [address] [place] [phone] PCP - General Family Medicine 01/14/21
--- OUTSIDE RECORDS SUMMARY | 2025-02-07 12:37 | XMS_ITS | Encounter Summary ---
Author Organization [employer] Address [address] [facility] [address] [place] [address] Care Team Providers Care Spring Winder Name Role Phone Ivania Lou MD Primary Care Provider [phone] Encounter Details Date Type Department Care Team (Late st Contact Info) Description 02/03/2025 Orders Only [facility] [address] [place], [place] [phone] Ivania Lou MD [address] [place], [place] [phone] Social History Tobacco Use Types Packs/Day Years [...] [facility] [address] [place] [address] Lashell Oconnell CNM [address] [place] [address] documented as of this encounter Visit Diagnoses Not on filedocumented in this encounter Additional Health Concerns Assessment Noted Time PHQ-9 Depression Total Score: 0 03/28/20 24 1:24 PM EDT documented as of this encounter Care Teams Spring Winder Relationship Specialty Start Date End Date Ivania Lou MD [address] [place] [address] PCP - General Family Medicine 01/14/21 documented as of this encounter
--- OUTSIDE RECORDS SUMMARY | 2025-02-07 12:37 | XMS_ITS | Encounter Summary ---
Author Organization [employer] Address [address] [facility] [address] [place] [address] Care Team Providers Care Z Os Mainframe Systems Programmer Name Role Phone Ivania Lou MD Primary Care Provider [phone] Reason for Visit * Reason Onset Date Comments Durable Medical Equipment 06/05/2023 Nebuli zer Encounter Details Date Type Department Care Team ([facility] st Contact Info) Description 06/05/2023 Telephone [facility] [address] [place], [place] [phone] Ivania Lou MD [address] [place], [place] [phone] Durable Medical Equipment (Nebulizer) Social History Tobacco Use Types Packs/Day Years Used Date Smoking Tobacco: Former Smokeless Tobacco: Never Alcohol Use Standard Drinks/Week Comments Never 0 (1 standard drink = 0.6 oz pur e alcohol) Comments Yes Sex and Gender Information Value Date Recorded Sex Assigned at Female 04/07/2022 10:32 AM EDT Legal Sex Female 10:32 AM EDT Gender Identity Female 04/07/2022 10:32 AM EDT Sexual Orientation Straight 04/07/2022 10 :32 AM EDT documented as of this encounter Miscellaneous Notes * Telephone Encounter - Sherry Doan - 06/10/2023 2:33 PM EST Order was generated and placed on provider desk for review and signature. * Telephone Encounter - Moses Clark - 06/05/2023 1:50 PM EST Tc from patient requesting a script for a Nebulizer Machine with supplies documented in this encounter Plan of Treatment Upcoming Encounters Date Type Department Care Team (Late st Contact Info) Description 03/22/2025 2:45 PM EDT Procedure Visit [facility] [address] [place], [place] [phone] Lashell Oconnell CNM [address] [place], [place] [phone] documented as of this encounter Visit Diagnoses Not on filedocumented in this encounter Care Teams [employer] Programmer Relationship Specialty Start Date End Date Ivania Lou MD [address] [place], [place] [phone] PCP - General Family Medicine 01/14/21 documented as of this encounter
--- OUTSIDE RECORDS SUMMARY | 2025-02-07 12:37 | XMS_ITS | Clinical Summary ---
Author Organization [facility] Address [address] [place] [address] Phone Care Team Providers Care Building Performance Consultant Name Role Phone Physician, Pcp Unknown Primary Care Provider Albertina vailable Allergies Active Allergy Reactions Criticality Noted Date Comments Penicillins 01/23/2025 Medications ciprofloxacin (CIPRO) 500 mg tablet Take 1 tablet (500 mg total) by mouth 2 (two) times a day for 7 days. 14 tablet 5 01/31/20 25 ondansetron ODT (ZOFRAN-ODT) 4 mg disintegrating tablet Let 1 tablet dissolve under the tongue three times daily as needed for nausea or vomiting. 10 tablet 5 01/31/20 25 Encounters Date Type Department Care Team Description 01/23/2025 10:44 AM EDT - 01/23/2025 12:07 PM EDT Emergency [facility] Emergency [address] [place] [address] Aly Paiz MD Pyelonephritis (Primary Dx) Discharge Disposition: Home or Self Care from Last 3 Months Social History Tobacco Use Types Packs/Day Years Used Date Smoking Tobacco: Never Assessed Comments Unknown Sex and Gender Information Value Date Recorded Sex Assigned at Not on file Legal Sex Female 9:58 AM EDT Gender Identity Not on file Sexual Orientation Not on file Obstetrics History Last Filed Vital Signs Vital Sign Reading Time Taken Comments Blood Pressure 112/79 01/23/2025 10:01 AM EDT Pulse 97 01/23/2025 10:01 AM EDT Temperature 36.7 C (98.1 F) 01/23/2025 10:01 AM EDT Respiratory Rate 16 01/23/2025 10:01 AM EDT Oxygen Saturation 100% 01/23/2025 10:01 AM EDT Inhaled Oxygen Concentration - - Weight 63.5 kg (140 lb) 01/23/2025 10:01 AM EDT Height 147.3 cm (4' 10 ) 01/23/2025 10:01 AM EDT Body Mass Index 29.26 01/23/2025 10:01 AM EDT Plan of Treatment Health Maintenance Due Date Last Done Comments Meningococcal B Vaccine (1 of 2 - Standard) 2018 Pneumococcal Vaccine: Pediatrics (0 to 5 Years) and At-Risk Patients (6 to 49 Years) (1 of 2 - PCV) 2021 Cervical Cancer Screening: Pap Smear 2023 Depression Screening 06/08/2024 Social Influencers of Health Screening 01/23/2025 COVID-19 Vaccine ( season) 2025 Influenza Vaccine (#1) 2025 , 05/26/2019, 05/25/2018, Additional history exists Gonorrhea/Chlamydia Screening 2025 2024 Cholesterol Screening (Lipid Panel) 01/04/2030 01/04/2025 DTaP,Tdap,and Td Vaccines (8 - Td or Tdap) 05/04/2033 05/04/2023, 04/01/2017, 03/27/2008, Additional history exists Hepatitis B Vaccines Completed 2002, 2002, 2002 HIB Vaccines Completed 01/09/2006, 0 11/2002, 2002, Additional history exists Varicella Vaccines Completed 2006, 0 07/21/2003, 04/20/2003 IPV Vaccines Completed 04/13/2006, 0 11/2002, 2002, Additional history exists MMR Vaccines Completed 05/15/2006, 03/09, 05/18/2003, Additional history exists Hepatitis A Vaccines Completed 04/01/2017, 01/10/20 06 HPV Vaccines Completed 05/25/2018, 05/09, 04/01/2017 Meningococcal ACWY Vaccine Completed 05/26/2019, HIV Screening Completed 2024 Hepatitis C Screening Completed 2024 RSV Immunization Patients Under 20 months Aged Out No longer eligible based on patient's age to complete this topic Procedures Procedure Name Priority Date/Time Associated Diagnosis Comments POC , URINE DIAGNOSTIC STAT 01/23/2025 11:20 AM EDT HCG QUALITATIVE, URINE STAT Add-on 01/23/2025 10:08 AM EDT ALEXANDER URINE CULTURE TUBE STAT 01/23/2025 10:08 AM EDT URINALYSIS WITH REFLEX MICROSCOPIC AND CULTURE STAT 01/23/2025 10:08 AM EDT URINALYSIS WITH REFLEX MICROSCOPIC AND CULTURE STAT 01/23/2025 10:08 AM EDT CULTURE URINE STAT 01/23/2025 10:08 AM EDT from Last 3 Months Results * POC , urine manually resulted (01/23/2025 11:20 AM EDT) HCG, Ur POC Negative Negative POC hCG Int QC Pass? Yes Yes Urine Urine specimen obtained by clean catch procedure / Unknown 01/23/2025 11:20 AM EDT Aly Paiz MD POINT OF CARE TEST ENTER /EDIT ORDERABLES Final Result * (ABNORMAL) Urinalysis with reflex microscopic and culture (01/23/2025 10:08 AM EDT) Specific Snook Urine 1.028 1.003 - 1.030 LAB URINALYSIS - AUTOMATED METHOD 01/23/2025 10:26 AM EDT [facility] pH, Urine 6.5 5.0 - 8.0 pH LAB URINALYSIS - AUTOMATED METHOD 01/23/2025 10:26 AM EDT [facility] Leukocytes, Urine Large(A) Negative LAB URINALYSIS - AUTOMATED METHOD 01/23/2025 10:26 AM [facility] Nitrite, Urine Negative Negative LAB URINALYSIS - AUTOMATED METHOD 01/23/2025 10:26 AM [facility] Protein, Urine 300(A) <=Trace mg/dL LAB URINALYSIS - AUTOMATED METHOD 01/23/2025 10:26 AM [facility] Glucose, Urine Negative Negative mg/dL LAB URINALYSIS - AUTOMATED METHOD 01/23/2025 10:26 AM [facility] Ketones, Urine Trace(A) Negative mg/dL LAB URINALYSIS - AUTOMATED METHOD 01/23/2025 10:26 AM [facility] Urobilinogen , Urine 1.0 0.2 - 1.0 mg/dL LAB URINALYSIS - AUTOMATED METHOD 01/23/2025 10:26 AM [facility] Bilirubin, Urine Negative Negative LAB URINALYSIS - AUTOMATED METHOD 01/23/2025 10:26 AM [facility] Blood, Urine Large(A) Negative LAB URINALYSIS - AUTOMATED METHOD 01/23/2025 10:26 AM [facility] RBC, Urine 727.1(H) 0 - 4 /HPF LAB URINALYSIS - AUTOMATED METHOD 01/23/2025 10:26 AM [facility] WBC, Urine 1,575.6(H) 0 - 4 /HPF LAB URINALYSIS - AUTOMATED METHOD 01/23/2025 10:26 AM [facility] Squamous Epithelial, Urine 89(H) 0 - 60 /LPF LAB URINALYSIS - AUTOMATED METHOD 01/23/2025 10:26 AM [facility] Bacteria, Urine Moderate(A) Negative /HPF LAB URINALYSIS - AUTOMATED METHOD 01/23/2025 10:26 AM [facility] Hyaline Casts, Urine 4.5(H) 0 - 3 /LPF LAB URINALYSIS - AUTOMATED METHOD 01/23/2025 10:26 AM EDT [facility] Urine Urine specimen obtained by clean catch procedure / Unknown Non-blood Collection / Unknown 01/23/2025 10:08 AM EDT 01/23/2025 10:18 AM EDT Lili POZO LAB URINE ORDERABLES Fin al Result Performing Organization Address [facility]/ZIP Co de Phone Number [facility] [address] [place] [address], [place] [phone] * Alexander urine culture tube (01/23/2025 10:08 AM EDT) Extra Tube Hold for add-ons. 01/23/2025 12:01 PM EDT [facility] Comment:Auto resulted. Urine Urine specimen obtained by clean catch procedure / Unknown Non-blood Collection / Unknown 01/23/2025 10:08 AM EDT 01/23/2025 10:18 AM EDT Lili POZO LAB URINE ORDERABLES Fin al Result Performing Organization Address [facility] de Phone Number [facility] [address] [place] [address], [place] [phone] * , urine (01/23/2025 10:08 AM EDT) Preg Test, Ur Negative Negative 01/23/2025 10:54 AM EDT [facility] Urine Urine specimen obtained by clean catch procedure / Unknown Non-blood Collection / Unknown 01/23/2025 10:08 AM EDT 01/23/2025 10:18 AM EDT Aly Paiz MD LAB URINE ORDERABLES Fin al Result Performing Organization Address [facility]/ZIP Co de Phone Number [facility] [address] [place] [address], [place] [phone] * (ABNORMAL) Culture urine (01/23/2025 10:08 AM EDT) [facility] Signature Culture, Urine >=100,000 CFU/mL Escherichia coli(A) ROGER 01/25/2025 8:44 AM EDT [facility] Urine Urine specimen obtained by clean catch procedure / Unknown Non-blood Collection / Unknown 01/23/2025 10:08 AM EDT 01/23/2025 10:26 AM EDT Narrative Organism Antibiotic Method Susceptibility Escherichia coli Amoxicillin/Clavulanate ROGER 4 ug/ml: Susceptible Escherichia coli Ampicillin/Sulbactam ROGER 16 ug/ml: Intermediate Escherichia coli Piperacillin/Tazobactam ROGER <=4 ug/ml: Susceptible Escherichia coli Cefazolin (Urine) ROGER 2 ug/ml: Susceptible Escherichia coli Cefoxitin ROGER <=4 ug/ml: Susceptible Escherichia coli Ceftazidime ROGER <=0.5 ug/ml: Susceptible Escherichia coli Ceftriaxone ROGER <=0.25 ug/ml: Susceptible Escherichia coli Cefepime ROGER <=0.12 ug/ml: Susceptible Escherichia coli Meropenem ROGER <=0.25 ug/ml: Susceptible Escherichia coli Amikacin ROGER 2 ug/ml: Susceptible Escherichia coli Gentamicin ROGER <=1 ug/ml: Susceptible Escherichia coli Ciprofloxacin ROGER <=0.06 ug/ml: Susceptible Escherichia coli Levofloxacin ROGER <=0.12 ug/ml: Susceptible Escherichia coli Nitrofurantoin ROGER 32 ug/ml: Susceptible Escherichia coli Trimethoprim/Sulfamethoxazole ROGER <=20 ug/ml: Susceptible Lili POZO LAB MICROBIOLOGY - GENER AL ORDERABLES Final Result [facility] [address] [place] [address], from Last 3 Months Insurance MEDICAID - [place] Care Teams Building Performance Consultant Relationship Specialty Start Date End Date Physician, Pcp Unknown PCP - General 01/23/25
--- OUTSIDE RECORDS SUMMARY | 2025-02-07 12:37 | XMS_ITS | Encounter Summary ---
Author Organization [employer] Address [address] [facility] [address]t [place] [address] Care Team Providers Care Court Recorder Name Role Phone Ivania Lou MD Primary Care Provider [phone] Reason for Visit * Reason Onset Date Comments Med Refill 05/29/2024 Encounter Details Date Type Department Care Team (Late st Contact Info) Description 05/29/2024 Refill [facility] [address] [place], [place] [phone] Ivania Lou MD [address] [place], [place] [phone] Social History Tobacco Use Types Packs/Day Years [...] Description 03/22/2025 2:45 PM EDT Procedure Visit [facility] [address] [place] [address] Lashell Oconnell CNM [address] [place] [address] documented as of this encounter Visit Diagnoses Not on filedocumented in this encounter Additional Health Concerns Assessment Noted Time PHQ-9 Depression Total Score: 0 03/28/20 24 1:24 PM EDT documented as of this encounter Care Teams Court Recorder Relationship Specialty Start Date End Date Ivania Lou MD [address] [place] [address] PCP - General Family Medicine 01/14/21 documented as of this encounter
--- OUTSIDE RECORDS SUMMARY | 2025-02-07 12:37 | XMS_ITS | Encounter Summary ---
Author Organization [employer] Address [address] [facility] [address] [place] [address] Care Team Providers Care Picker Packer Name Role Phone Ivania Lou MD Primary Care Provider [phone] Reason for Visit * Reason Onset Date Comments Nurse Triage 06/05/2023 Encounter Details Date Type Department Care Team (Late st Contact Info) Description 06/05/2023 Telephone [facility] [address] [place], [place] [phone] Ivania Lou MD [address] [place], [place] [phone] Nurse Triage Social History Tobacco Use Types [...] encounter Miscellaneous Notes * Telephone Encounter - Faina Velasquez RN - 06/05/2023 2:02 PM EST Called pt. Via [facility] [address] [phone]. Pt. States that she tested positive for Covid 05/31/23 and she is 35 weeks . Pt. Has Hx. Of Asthma and is requesting a refill on her inhaler. Pt. States she is having trouble breathing and feels SOB. Pt. Does not want to go to ED. Pt. Does not sound critical and does not sound SOB at present. No wheezing noted. Cough,congestion, no fever atpresent. Set up Uber for pt. To get assessed for breathing difficulty with and Positive Covid teston 05/31/23. Will send message to walk in nurses to let them know that pt. Will be arriving at walkin between 3-315pm. Protocol Used: COVID-19 - Diagnosed or Suspected (Adult) Protocol-Based Disposition: Pt. Wants to be seen for breathing difficulty with positive covid and 35 weeks . Video visit not offered Positive Triage Question: * Mild difficulty breathing (e.g., minimal/no SOB at rest, SOB with walking, pulse < 100) * All higher-acuity triage questions were negative Care Advice Discussed: * Reassurance and Education - Positive COVID-19 Lab Test and Mild Symptoms * General Care Advice for COVID-19 Symptoms * Cough Medicines * Humidifier * Coughing Spells * Pain and Fever Medicines * Mild Stomach and Intestinal Symptoms During COVID-19 Illness * COVID-19 - How to Protect Others - When You Are Sick With COVID-19 * COVID-19 - Face Masks for Prevention * Telephone Encounter - Moses Clark - 06/05/2023 1:52 PM EST Symptom: COVID-19 Positive Outcome: Transfer to a nurse or provider NOW! Reason: Struggling for each breath (severe trouble breathing) The caller accepted this outcome documented in this encounter Plan of Treatment Upcoming Encounters Date Type Department Care Team (Late st Contact Info) Description 03/22/2025 2:45 PM EDT Procedure Visit [facility] [address] [place] [address] Lashell Oconnell CNM [address] [place] [address] documented as of this encounter Visit Diagnoses Not on filedocumented in this encounter Care Teams Picker Packer Relationship Specialty Start Date End Date Ivania Lou MD [address] [place] [address] PCP - General Family Medicine 01/14/21 documented as of this encounter
[2025-02-07 13:20] LABS: MANUAL DIFF FLAG NO
[2025-02-07 13:28] LABS: Hematocrit 37.8 % (37.0-47.0); Hemoglobin 12.8 g/dl (12.0-16.0); Imm Gran Abs Auto 0.06 X10*3/uL (0.00-0.03); Imm Gran Pct Auto 0.6 % (0.0-0.4); Lymphocytes Absolute Auto 1.2 X10*3/uL (1.2-4.9); Mean Corpuscular HGB Conc 33.9 g/dl (31.0-35.0); Mean Corpuscular Hemoglobin 29.4 pg (27.0-33.0); Mean Corpuscular Volume 86.9 fL (80.0-98.0); NRBC Abs Auto 0.000 X10*3/uL (0.0-0.012); NRBC Pct Auto 0.0 /100WBC (0.0-0.2); Platelet Count 337 X10*3/uL (160-400); Red Blood Count 4.35 X10*6/uL (4.20-5.50); White Blood Count 10.4 X10*3/uL (4.8-10.8)
[2025-02-07 13:34] LABS: Anion Gap 11 (12-20); Blood Urea Nitrogen 14 mg/dL (9-16); Calcium 8.6 mg/dL (8.4-10.2); Carbon Dioxide 24 mmol/L (22-29); Chloride 108 mmol/L (96-108); Estimated Glomerular Filt Rate > 60; Potassium 3.9 mmol/L (3.3-5.1); Sodium 139 mmol/L (135-145)
== END 2025-02-07 11:02 | disposition home or self-care (01) ==
LOC: HO.HHCL 11:01
PROVIDERS: PCP Family Medicine; Referring Provider Family Medicine; Visit Provider General Practice
DX: Z32.01 Encounter for pregnancy test, result positive (principal); D64.9 Anemia, unspecified; R51.9 Headache, unspecified
CPT/HCPCS: 36415; 80048; 84702; 85025